=== PATIENT | female | born 1940 | race Caucasian/White ===

== ENCOUNTER 2017-10-19 06:29 | Inpatient (IN) | payer MEDICARE, MEDICAID ==
[2017-10-08 10:01] LABS: ABSOLUTE BASOPHILS 0.1 thou/uL (0.0-0.2); ABSOLUTE EOSINOPHILS 0.2 thou/uL (0.0-0.7); ABSOLUTE LYMPHOCYTES 1.2 thou/uL (0.8-5.3); ABSOLUTE MONOCYTES 0.4 thou/uL (0.0-1.2); ABSOLUTE NEUTROPHILS 6.2 thou/uL (1.6-8.1); BASOPHILS 0.8 %; HEMATOCRIT 43.4 % (37.0-47.0); HEMOGLOBIN 14.2 gm/dL (12.0-15.0); LYMPHOCYTES 15.2 %; MCH 29.5 pg (26.0-34.0); MCHC 32.8 g/dL (28.0-37.0); MONOCYTES 5.4 %; MPV 9.4 fl. (7.2-11.1); NUCLEATED RBCS 0 /100WBC; PLATELET COUNT* 187 thou/uL (150-400); POLYS 76.6 %; RBC 4.82 mil/uL (4.20-5.00); RDW-CV 15.4 % (10.5-14.5); WBC 8.1 thou/uL (4.0-11.0)
[2017-10-08 10:13] LABS: APTT 37.1 Seconds (25.0-31.3); INR 3.8
[2017-10-08 10:20] LABS: ALBUMIN 3.5 g/dL (3.4-5.0); CALCIUM 9.1 mg/dL (8.5-10.1); CREATININE 1.2 mg/dL (0.6-1.3); POTASSIUM 4.2 mmol/L (3.5-5.1); TOTAL BILIRUBIN 1.1 mg/dL (<0.1-1.0)
--- NOTE | 2017-10-08 14:46 | EKG ---
[place] [address] ELECTROCARDIOGRAM REPORT Name: ISABEL NORMAN Room: PRE IN R.#: [id number] Admission: Attend Phys: Radha Gamboa Discharge: Date of : 42 Report #: [id number] THIS REPORT FOR: //name// [facility] Test Date: 2017-10-08 Test Time: 08:48:45 Pat Name: ISABEL NORMAN Department: Room: Gender: F Particle Board Supervisor: : 1940 Requested By: Ivan Black Order Number: [id number] Reading MD: Russ Carreno Measurements Intervals [place] Rate: 60 P: WA: QRS: 96 QRSD: 115 T: 217 QT: 483 QTc: 483 Interpretive Statements Atrial fibrillation Nonspecific intraventricular conduction delay Repol abnrm suggests ischemia, anterolateral Compared to ECG 01/03/2015 11:31:06 rate slowed Electronically Signed On 10-08-2017 14:46:26 BIOMETRICS ANALYST by Russ Carreno [email or web address] <ELECTRONICALLY SIGNED> By: Russ Carreno MD, [facility] 10/08/17 1446 0848 0848 Russ Carreno MD, FACC /EPI
[~2017-10-19] VITALS: Ht 172.7 cm; Wt 108.9 kg
[~2017-10-19 06:29] MED LIST: ADULT LOW DOSE81 MG PO; ALBUTEROL2.5 MG/0.5 INH; ALLOPURINOL 30300 M1 PO; AMBIEN 10 MG TA10 MG PO; AMBIEN 5 MG TABL5 M1 PO; ASA81BEC PO; ASPIRIN EC81 M1 PO; AUGMENTIN 875875 MG PO; AZITHROMYCIN 2250 MG; AZITHROMYCIN 2250 MG PO; BENADRYL ALLERG25 MG PO; BENADRYL25 MG PO; CARAFATE1 GM/10 ML PO; CEFTIN500 MG; CHLORHEXIDINE; COUMADIN 5 MG TA5 M1 PO; COUMADIN PO; COUMADIN7.5 MG PO; DIAZEPAM 5 MG5 M1 PO; DOXYCYCLINE 10100 M2 PO; ERAPID NEBULIZ1 EACH MC; JANTOVEN5 MG PO; LASIX 40 MG TAB40 M1 PO; LEVOTHROID75 MCG PO; LIPITOR80 MG PO; LOPRESSOR 12.12.5 MG PO; LOPRESSOR 50 MG50 M1 PO; LOPRESSOR25 PO; LOPRESSOR50 PO; LORTAB 5 MG/5001 TA1 PO; LOVENOX; LOVENOX SC; MECLIZINE 25 MG25 M1 PO; MULTIVITAMINS1 EAC7; NITROFURANTOIN100 MG PO; NORCO 5-325 TA1 EACH; PACERONE 200 M200 MG NG; PERCOCET 2.5-31 EACH PO; PERCOCET PO; PHENERGAN 25 MG25 M1 PO; PILOCARPINE HCL5 M1 PO; POTASSIUM CHLORIDE; PREDNISONE 20 M20 M1 PO; PRILOSEC40 MG PO; PROMETHAZINE/C118 ML; RENA-VITE TABL0.8 MG PO; RENAL MULTIVIT1 EACH PO; SIMVASTATIN40 MG PO; SYNTHROID75 MCG PO; SYNTHROID88 MCG PO; TIMOLOL GL0.5 %/5 M1 OP; TRAVATAN Z2.5 ML OPHTHALMIC; VENTOLIN HFA 1818 GM INH; VOL-CARE RX TA1 EACH PO; ZETIA10 MG PO
[2017-10-19 07:00] VITALS: BP 146/85
[2017-10-19 07:31] LABS: INR 1.4; PROTIME 13.3 Seconds (9.20-11.50)
[2017-10-19 14:20] VITALS: BP 133/62
--- NOTE | 2017-10-19 15:15 | OP ---
[facility] [place] [address] OPERATIVE REPORT Name: ISABEL NORMAN Room: [address] IN M.R.#: [id number] Admission: 10/19/17 Attend Phys: Radha Gamboa Discharge: Date of : 42 Report #: [id number] THIS REPORT FOR: //name// CC: Scarlet Garg DATE OF SERVICE: 10/19/2017 PREOPERATIVE DIAGNOSIS: Advanced degenerative joint disease, left knee. POSTOPERATIVE DIAGNOSIS: Advanced degenerative joint disease, left knee. PROCEDURE PERFORMED: Left total knee arthroplasty. SURGEON: Ivan Black DO. LACE PAPER MACHINE OPERATOR: Eligio Faust DO. SECOND ASSIST: , DO. ANESTHESIA: General with local capsular block. ESTIMATED BLOOD LOSS: 250 mL. SPECIMENS: None. COMPLICATIONS: None. CONDITION: Stable. DRAINS: None. TOURNIQUET: Not used. ANTIBIOTICS: 1 gram vancomycin preoperatively, 1 gram vancomycin intraoperatively. IMPLANTS: Biomet Vanguard posterior stabilized size 60 femur, 71 mm tibial baseplate, 31 mm asymmetric patella and a 14 mm posterior stabilized polyethylene liner. INDICATIONS: The patient is a 76-year-old female who has been seen multiple times in the clinic regarding her left knee pain. Unfortunately, she is no longer responding to conservative treatments including anti-inflammatories, weight loss, activity modification, corticosteroid injections. She presents [facility] [place] [address] OPERATIVE REPORT Name: ISABEL NORMAN Room: [address] IN [facility].#: [id number] Admission: 10/19/17 Attend Phys: Radha Gamboa Discharge: Date of : 42 Report #: [id number] today for the above-mentioned procedure. Risks, benefits, complications and alternatives of surgery have been thoroughly reviewed and discussed with her and she is wishing to proceed. DESCRIPTION OF PROCEDURE: The patient taken to the OR suite, placed supine on the OR table. She was given the benefit of general anesthetic. A well-padded tourniquet was placed on the left upper thigh. This was not inflated during the case. Prior to procedure, a timeout was taken confirming correct site, patient and procedure. Procedure began with a midline incision over the left knee. Dissection carried down to the joint capsule. A second knife was used to perform a medial parapatellar capsulotomy. Medial periosteal sleeve was developed and excess fat pad and synovium were removed. The patella was everted and leg was brought into flexion. The opening drill was used to access femoral canal. IM guide sid was inserted and a distal femoral cutting block was pinned in place. This was set to take 11 mm cut off the distal femur. These cuts were performed and proceeded to the tibia. Extramedullary guide sid was used to align our tibial cutting block. This was measured at 10 mm off the high side and the block was then shifted up 2 mm superiorly and locked in place. Our proximal tibia cut was performed at this time. Please note retractors were placed to protect all vital structures during all of her bone cuts. The leg was brought into extension and a 10 mm spacer block was placed. This allowed full extension. We then proceeded to size our distal femur. This was measured a size 60. A 4-in-1 cutting block pinned in place and these cuts were made. Remaining ACL and PCL were removed as well as the excess menisci. Tibial tray was then pinned in place utilizing a drop sid to check her alignment. This was measured in line with the medial third tibial tubercle and mid talus. A trial tibia pinned in place followed by femur and a 10 mm spacer was placed. We then proceeded to resurface the patella. There was a significant amount of wear on the patella as well. This was done using the Shanice reamer system. A trial button was placed. Knee was taken through range of motion. Patella was tracking well. The 10 mm block was lying in full extension and flexion; however, there was a bit of laxity; therefore, we upsized to a size 14. All trial implants were removed. The proximal tibia was prepared. Pulsavac was used to clean bone surfaces while cement was mixed on the back table. Final implants were placed to begin with tibial tray and followed by the femur and the patella. All excess cement was removed. A 40 mm spacer block was used for compression. The final poly was inserted with the locking bar. The knee was held in a single position while cement was allowed to cure. Posterior capsular block was performed. The knee was thoroughly irrigated. Vancomycin powder was placed in the wound as well as a topical TXA. The capsule was closed with a #1 Vicryl followed by a running Quill, 2-0 Monocryl subcutaneously and a running 3-0 V-Loc with Dermabond glue for skin. Sterile [place] [address] OPERATIVE REPORT Name: ISABEL NORMAN: 106- ADM IN M.R.#: [id number] Admission: 10/19/17 Attend Phys: Radha Gamboa Discharge: Date of : 42 Report #: [id number] patient tolerated the procedure well and was transferred to PACU in good and stable condition. All sponge, needle counts were correct x 2. <ELECTRONICALLY SIGNED> By: Ivan Black DO 10/19/17 1515 1250 1331Rdagoberto Black DO /nt
[2017-10-20 00:41] VITALS: BP 125/64
[2017-10-20 04:30] VITALS: BP 112/55
[2017-10-20 04:49] LABS: HEMATOCRIT 35.9 % (37.0-47.0)
[2017-10-20 08:30] VITALS: BP 104/51
[2017-10-20 16:33] VITALS: BP 117/50
[2017-10-21 00:17] VITALS: BP 116/64
[2017-10-21 04:26] VITALS: BP 130/61
[2017-10-21 04:37] LABS: INR 1.4; PROTIME 13.6 Seconds (9.20-11.50)
[2017-10-21 04:43] LABS: HEMOGLOBIN 11.1 gm/dL (12.0-15.0)
[2017-10-21 08:05] VITALS: BP 123/54
--- NOTE | 2017-10-21 10:33 | S ---
[address] [address] SURGICAL PATH RPT PROCEDURE Name: VIANEY NORMAN Room: [address] IN M.R.#: [id number] Admission: 10/19/17 Date of : 42 Discharge: Report #: [id number] Path Case #: [id number] PATHOLOGY REPORT COLLECTION DATE: 10/19/2017 RECEIVED DATE: 10/19/2017 SUBMITTING PHYS: Dr. Ivan Black OTHER PHYS: Dr. Scarlet Garg SPECIMEN(S) RECEIVED: A.Left knee bone and tissue * * * * * * * * * * * * FINAL DIAGNOSIS: Left knee bone and tissue, total knee replacement: - Benign meniscus and synovium and benign bone and cartilage with severe degenerative changes. (FIDEL:pit; 10/21/2017) PATHOLOGIST: Austyn Ureña M.D. REPORT ELECTRONICALLY SIGNED BY: Austyn Ureña M.D. DATE/TIME: 10/21/2017 10:33 * * * * * * * * * * * * GROSS PATHOLOGY: Received in formalin labeled "Vianey Norman left knee bone and tissue," are multiple segments of bone, including tibial plateau, measuring 13.1 x 12.6 x 2.4 cm in aggregate dimensions admixed with soft tissue; meniscus is present. The specimen shows focal eburnation of the articular surfaces. Mac Developer sections of bone and soft tissue are submitted in cassette A1, following decalcification. (DAC; 10/20/2017) CLINICAL HISTORY: Left knee degenerative joint disease INITIAL CPT CODE(S): A; 83406, 16644 Professional services performed by [facility] at [facility] [address] [place] [address] Technical services performed by [facility] at [address] [place] [address], [facility] [address] [address]. [address] [address] SURGICAL PATH RPT PROCEDURE Name: VIANEY NORMAN Room: [address] IN [facility].#: [id number] Admission: 10/19/17 Date of : 41 Discharge: Report #: [id number] Path Case #: [id number] [facility] [address] [address] PHONE: [phone] DIRECTOR: Werner Lloyd M.D. * * * END OF REPORT * * *
[2017-10-21 13:19] VITALS: BP 123/54
[2017-10-21] MEDS ORDERED: PRILOSEC 10MG C10 MG PO (13:42)
[2017-10-21] MEDS ORDERED: AMBIEN 5 MG TABL5 M1 PO (13:45)
[2017-10-21] MEDS ORDERED: COUMADIN 5 MG TA5 M1 PO (13:46)
[2017-10-21] MEDS ORDERED: OXYCONTIN10 M1 PO (13:48)
[2017-10-21] MEDS ORDERED: CENTRUM SILVER1 EAC2 PO (13:50)
[2017-10-21] MEDS ORDERED: LIPITOR80 MG PO (13:53)
[2017-10-21] MEDS ORDERED: LOPRESSOR50 PO (13:54)
[2017-10-21] MEDS ORDERED: ENOXAPARIN40 MG/0.1 SUBQ (13:56)
[2017-10-21 18:50] VITALS: BP 145/78
[2017-10-21 20:05] VITALS: BP 138/51
[2017-10-22 00:03] VITALS: BP 137/66
[2017-10-22 04:00] VITALS: BP 117/50
[2017-10-22 04:07] LABS: INR 1.4; PROTIME 13.6 Seconds (9.20-11.50)
[2017-10-22 07:32] VITALS: BP 147/64
[2017-10-22 09:02] VITALS: BP 123/54
== END 2017-10-22 14:30 | DRG 470 ==
LOC: M.PRE 06:29 → M.ORTHSURG 07:01 → M.TBA 07:01 → M.PRE 12:32 → M.ORTHSURG 13:44
PROVIDERS: Internal Medicine; Orthopaedic Surgery; ADMIT Internal Medicine
PROC: 0SRD0J9 Replacement of Left Knee Joint with Synthetic Substitute, Cemented, Open Approach (ICD-10-PCS; principal; 2017-10-19)
PROC: 3E0T3BZ Introduction of Anesthetic Agent into Peripheral Nerves and Plexi, Percutaneous Approach (ICD-10-PCS; 2017-10-19)
DX: M17.12 Unilateral primary osteoarthritis, left knee (principal); J98.11 Atelectasis; I48.91 Unspecified atrial fibrillation; I10 Essential (primary) hypertension; M10.9 Gout, unspecified; H54.62 Unqualified visual loss, left eye, normal vision right eye; E66.01 Morbid (severe) obesity due to excess calories; Z90.49 Acquired absence of other specified parts of digestive tract; Z87.891 Personal history of nicotine dependence; Z95.2 Presence of prosthetic heart valve; Z88.5 Allergy status to narcotic agent; Z88.0 Allergy status to penicillin; Z91.040 Latex allergy status; Z88.8 Allergy status to other drugs, medicaments and biological substances; Z79.899 Other long term (current) drug therapy; Z68.36 Body mass index [BMI] 36.0-36.9, adult; Z79.01 Long term (current) use of anticoagulants

== ENCOUNTER → 2017-11-02 | Outpatient (CLI) | payer MEDICARE, MEDICAID ==
[~2017-11-02] MED LIST changes: +CENTRUM SILVER1 EAC2 PO; +ENOXAPARIN40 MG/0.1 SUBQ; +OXYCONTIN10 M1 PO; +PRILOSEC 10MG C10 MG PO
== END ==
LOC: M.WC 11-01 08:00
DX: T81.31XD Disruption of external operation (surgical) wound, not elsewhere classified, subsequent encounter (principal); I87.2 Venous insufficiency (chronic) (peripheral); I89.0 Lymphedema, not elsewhere classified; I48.91 Unspecified atrial fibrillation; E03.9 Hypothyroidism, unspecified; E78.5 Hyperlipidemia, unspecified; E66.01 Morbid (severe) obesity due to excess calories; J44.9 Chronic obstructive pulmonary disease, unspecified; Z87.891 Personal history of nicotine dependence; Z86.73 Personal history of transient ischemic attack (TIA), and cerebral infarction without residual deficits; Z68.38 Body mass index [BMI] 38.0-38.9, adult; Y83.8 Other surgical procedures as the cause of abnormal reaction of the patient, or of later complication, without mention of misadventure at the time of the procedure

== ENCOUNTER → 2017-12-08 | Outpatient (CLI) | payer MEDICARE, MEDICAID ==
--- NOTE | 2017-12-10 11:06 | PF ---
[address] [address] PULMONARY FUNCTION REPORT Name: ISABEL NORMAN Room: [facility] Marialuisa#: [id number] Admission: 12/08/17 Attend Phys: Scarlet Louis DO Discharge: Date of : 42 Report #: [id number] THIS REPORT FOR: //name// CC: Scarlet Freed REFERRING PHYSICIAN: Dr. Dexter Freed/Dr. Scarlet Louis. Spirometry: FEV1/FVC ratio was 60%. The FEV1 was 1.23 liters at 52% predicted. The FVC was 1.97 liter, 62% of predicted. No positive bronchodilator response. Total lung capacity was 87% predicted at 4.74 liters. The residual volume was 94% predicted. DLCO was low at 38% predicted. IMPRESSION: The above pulmonary function test demonstrates moderately severe obstructive pulmonary defect with low DLCO. <ELECTRONICALLY SIGNED> By: Tristan Mitchell MD 12/10/17 1106 1110 1251Dsantos Hernandez MD /nt
== END ==
LOC: M.PUL 09:34
DX: I51.7 Cardiomegaly (principal); J98.8 Other specified respiratory disorders; R09.02 Hypoxemia; Z88.0 Allergy status to penicillin

== ENCOUNTER → 2017-12-31 | Outpatient (CLI) | payer MEDICARE, MEDICAID | LOC: M.RAD 12:31 | DX: Z12.31 Encounter for screening mammogram for malignant neoplasm of breast (principal); N63.0 Unspecified lump in unspecified breast ==

== ENCOUNTER → 2018-01-08 | Outpatient (CLI) | payer MEDICARE, MEDICAID ==
[2018-01-08 09:48] LABS: INR 2.2; PROTIME 21.4 Seconds (9.20-11.50)
== END ==
LOC: M.ULTRA 01-05 08:30
PROVIDERS: Radiology Radiation Oncology
DX: R92.8 Other abnormal and inconclusive findings on diagnostic imaging of breast (principal); R79.1 Abnormal coagulation profile

== ENCOUNTER → 2018-02-03 | Outpatient (CLI) | payer MEDICARE, MEDICAID ==
[2018-02-03 15:36] LABS: CALCIUM 9.1 mg/dL (8.5-10.1); CREATININE 1.3 mg/dL (0.6-1.3); MAGNESIUM 2.1 mg/dL (1.8-2.4); POTASSIUM 4.5 mmol/L (3.5-5.1)
== END ==
LOC: M.LAB 14:40
PROVIDERS: Nurse Practitioner
DX: I50.32 Chronic diastolic (congestive) heart failure (principal); N18.3 Chronic kidney disease, stage 3 (moderate); J44.9 Chronic obstructive pulmonary disease, unspecified; I89.0 Lymphedema, not elsewhere classified

== ENCOUNTER → 2018-03-03 | Outpatient (CLI) | payer MEDICARE, MEDICAID ==
--- NOTE | 2018-03-14 12:04 | ONC ---
[place] [address] RADIATION ONCOLOGY NOTE Name: ISABEL NORMAN [id number] Admission: 03/03/18 Attend Phys: Ford Francisco MD Discharge: Date of : 41 Report #: [id number] THIS REPORT FOR: //name// CC: Dr. Scarlet Black (Orthopedic Surgeon) Dr. Dickson Angel DATE OF SERVICE: 03/03/2018 REFERRING PHYSICIANS: Include Dr. Dexter Freed, Dr. Ivan Gordon, Dr. Black from Orthopedics and Dr. Scarlet Louis and Dickson Angel, DO. [facility] phone is [phone]. 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 Radiation treatments were completed on 07/30/2010. INTERVAL NOTE: The patient has xerostomia, and she avoids dry foods. She likes to eat moist foods. She is edentulous. Usually, she will eat soft foods. She said she had some weight loss, but she said that has less to do with her intake of food than the Lasix that she is taking. MEDICATIONS: Include metoprolol. Coumadin, which she takes because she has an artificial heart valve. Benadryl as needed. Lipitor, allopurinol, Ambien, Lasix, omeprazole, oxycodone as needed. She is on 88 mcg of levothyroxine. SOCIAL HISTORY: The patient is and retired. She was a former smoker, and she quit smoking around 2005, and she smoked about a pack a day for about 50 years. REVIEW OF SYSTEMS: RESPIRATORY: The patient's breathing was stable. She does not have any shortness of breath. GASTROINTESTINAL: The patient feels like she is eating well. She feels like her weight loss is mostly due to adjustments in her Lasix. PHYSICAL EXAMINATION: VITAL SIGNS: The patient weighed 250.6 pounds on 03/03/2018, 266.2 pounds on 02/20/2017 and 258.2 pounds on 08/25/2016. On 03/03/2018, blood pressure was 138/77, pulse 78, oxygen saturation 100%, respirations 20. LYMPH NODES: The patient had no palpable cervical or supraclavicular [place] [address] RADIATION ONCOLOGY NOTE Name: ISABEL NORMAN Room: [facility]#: [id number] Admission: 03/03/18 Attend Phys: Ford Francisco MD Discharge: Date of : 42 Report #: [id number] HEART: She has known atrial fibrillation with an irregular rate and rhythm. HEAD, EYES, EARS, NOSE AND THROAT: Mouth had no suspicious visible lesions. There were no suspicious visible lesions in the tonsillar area. There were no palpable suspicious lesions in the mouth or the tonsil area. LUNGS: were clear to auscultation. LABORATORY DATA: BUN 28, creatinine 1.25. White blood count 6.6, hemoglobin 12.6, TSH was 2.91, which was within normal limits, on her present dose of levothyroxine, which was at 88 mcg per day. RADIOLOGIC DATA: The patient had a biopsy of the right breast because of some skin thickening on her mammogram and that was benign, so radiologically from 01/08/2018, she had a diagnostic mammogram, which showed some thickening of left breast, which ended up being benign skin thickening. She also had a screening low dose chest CT on 12/28/2017, which showed a stable small left lower lobe nodule, and development of scattered new tiny pulmonary nodules measuring up to 0.3 cm, which were nonspecific, but thought to be granulomas or scarring. A followup chest low dose CT was recommended in 12 months. She has coronary artery calcifications and follows up with her conditioner tumbler. ASSESSMENT/PLAN: 1. Lung cancer screening- The patient will have a low dose chest CT without contrast ordered in 12/2018. She will be asked to schedule a follow up appointment to see me afterwards. 2. Abdominal aortic aneurysm- The patient follows up with her vascular surgeon, Dr. Gordon, and she says she is going to have an ultrasound in the next week with Dr. Gordon. 3. Dentition- The patient is edentulous. 4. History of head and neck cancer- There is no evidence of head and neck cancer at this time. A requisition was written for a complete blood count, comprehensive metabolic panel, TSH in 02/2019, and the patient was asked to schedule a followup appointment to see me afterwards. 5. Hypothyroidism- The patient was given a refill for 88 mcg of levothyroxine and a TSH was ordered in 02/2019. She was asked to schedule a followup appointment [place] [address] RADIATION ONCOLOGY NOTE Name: ISABEL NORMAN Room: [facility]#: [id number] Admission: 03/03/18 Attend Phys: Ford Francisco MD Discharge: Date of : 42 Report #: [id number] Thank you for allowing me to participate in the care of this patient. <ELECTRONICALLY SIGNED> By: Ford Francisco MD 03/14/18 1204 1014 1724Dgail Francisco MD /nt
== END ==
LOC: M.RTH 01-27 09:30
DX: Z08 Encounter for follow-up examination after completed treatment for malignant neoplasm (principal); E03.9 Hypothyroidism, unspecified; I71.4 Abdominal aortic aneurysm, without rupture; Z85.850 Personal history of malignant neoplasm of thyroid; Z85.9 Personal history of malignant neoplasm, unspecified

== ENCOUNTER → 2019-01-05 | Outpatient (CLI) | payer MEDICARE, MEDICAID ==
[~2019-01-05] MED LIST changes: +KLOR-CON 1010 MEQ PO; +LASIX 40 MG TAB40 M2 PO; +MEDI-LYTE TABL1 EACH PO; +OXYCODONE HCL 55 MG PO; -OXYCONTIN10 M1 PO; +SPIRONOLACTONE25 MG PO; +SYNTHROID100 MC1 PO; -TIMOLOL GL0.5 %/5 M1 OP; +TIMOLOL GL0.5 %/5 M1 OPHTHALMIC
--- NOTE | 2019-01-06 17:27 | 2DMMODE ---
[place] [address] 2 D/M-MODE ECHOCARDIOGRAM Name: ISABEL NORMAN Room: [facility]#: [id number] Admission: 01/05/19 Attend Phys: Hayden Canseco Discharge: Date of : 42 Date of Service: 01/06/19 1727 Report #: [id number] THIS REPORT FOR: //name// ADDENDUM APPROVED REPORT Study performed: 01/05/2019 08:45:03 EXAM: Comprehensive 2D, Doppler, and color-flow Echocardiogram Patient Location: Out-Patient BSA: 2.27 HR: 64 bpm BP: 138/66 mmHg Other Information Study Quality: Fair Indications Congestive Heart Failure Atrial Fibrillation Aortic Valve replacement Echo Enhancing Agent Indication: Rule out Shunt Agent(s) / Amount(s) Used: Agitated Saline 10 cc 2D Dimensions IVSd: 13.04 (7-11mm) LVOT Diam: 20.94 (18-24mm) LVDd: 48.97 mm PWd: 8.82 (7-11mm) Ascending Ao: 29.12 (22-36mm) LVDs: 29.47 (25-40mm) Aortic Root: 26.12 mm Volumes Left Atrial Volume (Systole) LA ESV Index: 27.40 mL/m2 Aortic Valve AoV Peak Gerry.: 1.96 m/s AO Peak Gr.: 15.39 mmHg LVOT Max P.45 mmHg AO Mean Gr.: 8.74 mmHg LVOT Mean P.77 mmHg LVOT Max V: 0.60 m/s AO V2 VTI: 49.90 cm LVOT Mean V: 0.41 m/s SAI (VTI): 1.04 cm2 LVOT V1 VTI: 15.11 [place] [address] 2 D/M-MODE ECHOCARDIOGRAM Name: ISABEL NORMAN [facility] [id number] Admission: 01/05/19 Attend Phys: Hayden Canseco Discharge: Date of : 42 Date of Service: 01/06/19 1727 Report #: [id number] Mitral Valve MV Decel. Time: 166.93 ms MV PHT: 48.41 ms MVA (PHT): 4.54 cm2 TDI Medial E' Gerry.: 0.07 m/s Lateral E' Gerry.: 0.10 m/s Pulmonary Valve PV Peak Gerry.: 0.82 m/s PV Peak Gr.: 2.70 mmHg Tricuspid Valve RAP Estimate: 5.00 mmHg TR Peak Gr.: 14.98 mmHg RVSP: 19.98 mmHg PA Pressure: 19.98 mmHg Left Ventricle The left ventricle is normal size. There is global hypokinesis of the left ventricle. There is normal left ventricular wall thickness. Left ventricular systolic function is mildly decreased. LVEF is 45-50%. The left ventricular diastolic function is normal. Right Ventricle The right ventricle is normal size. Right ventricle is mildly hypokinetic. Atria Left atrium is mildly dilated. Interatrial septum is intact without evidence of ASD or PFO. Right atrium is mildly dilated. Aortic Valve Mechanical aortic valve is present. No aortic regurgitation is present. There is no aortic valvular stenosis. Mitral Valve Mild mitral annular calcification. The mitral valve is mildly thickened. Mild mitral regurgitation. No evidence of mitral valve stenosis. Tricuspid Valve The tricuspid valve is normal in structure. Mild tricuspid regurgitation. Pulmonic Valve The pulmonary valve is normal in structure[place] [address] 2 D/M-MODE ECHOCARDIOGRAM Name: ISABEL NORMAN Room: [facility]#: [id number] Admission: 01/05/19 Attend Phys: Hayden Canseco Discharge: Date of : 42 Date of Service: 01/06/19 1727 Report #: [id number] regurgitation. Great Vessels The aortic root is normal in size. IVC is normal in size and collapses >50% with inspiration. Pericardium There is no pericardial effusion. <Conclusion> LVEF is 45-50%. Left atrium is mildly dilated. Mechanical aortic valve is present. Mild mitral regurgitation. Interatrial septum is intact without evidence of ASD or PFO. <ELECTRONICALLY SIGNED> By: Saravanan Orellana MD, [facility] 01/06/191726 26 26 Saravanan Orellana MD, FAC /INF
== END ==
LOC: M.CRD 08:41
DX: I08.8 Other rheumatic multiple valve diseases (principal); I11.0 Hypertensive heart disease with heart failure; I50.32 Chronic diastolic (congestive) heart failure; I48.2 Chronic atrial fibrillation; Z95.2 Presence of prosthetic heart valve; Z88.8 Allergy status to other drugs, medicaments and biological substances; Z91.040 Latex allergy status; Z88.5 Allergy status to narcotic agent; Z88.0 Allergy status to penicillin

== ENCOUNTER 2019-01-06 11:00 | Inpatient (IN) | payer MEDICARE, MEDICAID ==
[~2019-01-06] VITALS: Ht 170.2 cm; Wt 113.9 kg
--- NOTE | ~2019-01-06 | CON ---
[address] [address] CONSULTATION Name: ISABEL NORMAN Room: [address] IN [place].#: [id number] Admission: 01/06/19 Attend Phys: Clifford Lara MD Discharge: Date of : 42 Report #: [id number] THIS REPORT FOR: //name// CC: Scarlet Lara DATE OF SERVICE: 01/07/2019 NEUROLOGY CONSULTATION HISTORY OF PRESENT ILLNESS: The patient is a 78-year-old female who presents with paresthesias of the left hand. She also noticed some weakness when she tried to grasp something. She was concerned that she might be having a stroke, so she came to the Emergency Room. In the Emergency Room, the patient had a CT scan of the head, this was unremarkable. The patient herself states that she had no other symptoms in her face or her legs other than in the left hand where she had some numbness and weakness. Today, she has returned to normal. PAST MEDICAL HISTORY: Vascular disease, severe retinal tear in the left eye, chronic bronchitis, heart murmur, atrial fibrillation with cardioversion, hypertension, gout, nocturnal hypoxia, chronic kidney disease, chronic congestive heart failure, pulmonary hypertension, chronic obstructive pulmonary disease, diabetes mellitus, hypothyroidism, hyperlipidemia. PAST SURGICAL HISTORY: Removal of the left eye after the torn retina could not be repaired, mechanical aortic valve replacement, tonsillectomy secondary to tonsillar cancer, cholecystectomy, right carotid endarterectomy. MEDICATIONS: Aldactone 25 mg daily, aspirin 81 mg daily, atorvastatin 80 mg daily, Zetia 10 mg at bedtime, Lasix 40 mg b.i.d., Xalatan eye drops daily, levothyroxine 100 mcg daily, metoprolol 50 mg b.i.d., pantoprazole 40 mg daily, allopurinol 150 mg at bedtime. ALLERGIES: PROCAINE, PENICILLIN, CODEINE AND LATEX. PHYSICAL EXAMINATION: VITAL SIGNS: Temperature 36.3, pulse rate 59, respiratory rate 18, blood pressure 117/73, bedside pulse oximetry 97% on 2 liters. NEUROLOGIC: Cranial nerves 2-12 are grossly intact. Motor exam demonstrates symmetrical strength in all 4 extremities. The patient has marked atrophy of the left abductor pollicis brevis. Coordination reveals intact [id number]. Gait was not tested. LABORATORY DATA: Hematology: White blood cell count 5.7, hemoglobin 12.5, hematocrit 37.1, MCV 86.3, platelet count 146,000. INR 7.1. Chemistry: Sodium 143, potassium 4, chloride 107, carbon dioxide 28, BUN 28, creatinine 1.3, [place] [address] CONSULTATION Name: ISABEL NORMAN Room: [address] IN M.R.#: [id number] Admission: 01/06/19 Attend Phys: Clifford Lara MD Discharge: Date of : 42 Report #: [id number], glucose 93, hemoglobin A1c 6.1, calcium 8.7. Liver functions normal. Triglycerides 61, cholesterol 133, LDL cholesterol 74, HDL cholesterol 47. IMAGING: CT scan of the head demonstrates moderate cerebral atrophy. Carotid ultrasound consistent with right carotid stenting. IMPRESSION: This patient most likely has a left carpal tunnel syndrome. My office will call her on Thursday to schedule an EMG. The patient also has limited range of motion of the right shoulder. She sees Dr. Black and I suggested that she speak to him to see what can be done about her shoulder. I thank you for your kind referral of this patient. By: 1447 0420Precious Jackman DO /nt
[2019-01-06 11:01] VITALS: BP 138/55
--- NOTE | 2019-01-06 11:23 | NUR ---
PT'S SON CONTACTED FOR UPDATE ON PT, PER PATIENT REQUEST
[2019-01-06 11:33] LABS: ABSOLUTE EOSINOPHILS 0.1 thou/uL (0.0-0.7); ABSOLUTE LYMPHOCYTES 1.3 thou/uL (0.8-5.3); ABSOLUTE MONOCYTES 0.4 thou/uL (0.0-1.2); ABSOLUTE NEUTROPHILS 4.6 thou/uL (1.6-8.1); BASOPHILS 0.8 %; EOSINOPHILS 0.9 %; HEMATOCRIT 43.1 % (37.0-47.0); HEMOGLOBIN 14.3 gm/dL (12.0-15.0); LYMPHOCYTES 20.8 %; MCH 28.8 pg (26.0-34.0); MCHC 33.2 g/dL (28.0-37.0); MCV 86.7 fL (80.0-100.0); MPV 9.2 fl. (7.2-11.1); NUCLEATED RBCS 0 /100WBC; PLATELET COUNT* 165 thou/uL (150-400); POLYS 71.5 %; RBC 4.97 mil/uL (4.20-5.00); RDW-CV 17.2 % (10.5-14.5); WBC 6.4 thou/uL (4.0-11.0)
[2019-01-06 11:50] LABS: ALBUMIN 3.3 g/dL (3.4-5.0); ALKALINE PHOSPHATASE 113 U/L (46-116); ANION GAP 6 mmol/L (7-16); BUN 30 mg/dL (7-18); CALCIUM 8.9 mg/dL (8.5-10.1); CHLORIDE 104 mmol/L (98-107); CO2 30 mmol/L (21-32); CREATININE 1.5 mg/dL (0.6-1.3); GLUCOSE 102 mg/dL (70-99); POTASSIUM 4.1 mmol/L (3.5-5.1); SGOT 33 U/L (15-37); SGPT 30 U/L (30-65); SODIUM 140 mmol/L (136-145); TOTAL BILIRUBIN 0.8 mg/dL (<0.1-1.0); TOTAL PROTEIN 7.2 g/dL (6.4-8.2); TROPONIN-I LEVEL <0.06 ng/mL (<0.06)
[2019-01-06 12:03] LABS: APTT 46.9 Seconds (25.0-31.3); PROTIME 71.4 Seconds (9.20-11.50)
[2019-01-06 12:10] LABS: INR 7.1
--- NOTE | 2019-01-06 12:26 | NUR ---
STEFFI NOTIFIED UPON PT RETURN FROM CT. PT CONNECTED TO MONITOR AND O2
[2019-01-06 13:15] VITALS: BP 156/102
[2019-01-06 14:11] VITALS: BP 155/84
--- NOTE | 2019-01-06 14:16 | NUR ---
RECEIVED REPORT FROM ER AND ASSUMED CARE PF PT AT 1320.PT IS AN NEW ADMISSION FROM ER FOR WEAKNESS.PT IS A/OX4.TRACING AFIB ON THE MONITOR.HAS HX OF AFIB.ON RA.NIH SCALE OF 3 NO ANY ACUTE CHANGES.ADMISSION PROCEDURE COMPLETED,ALL PAPER SIGNED.VSS.NO SKIN ISSUES AND EDEMA.RT LIMB ALERT FOR HX FISTULA.LATEX ALLERY.PASSED SWALLO TEST DOWN IN THE ER.CAROTID DOPPLER COMPLETED.UP STAND BY.CALL LIGHT AND FALL PRECAUTIONS IN PLACE.WILL CONYINUE TO MONITOR
--- NOTE | 2019-01-06 14:18 | EKG ---
[place] [address] ELECTROCARDIOGRAM REPORT Name: ISABEL NORMAN Room: [address] ADM IN .R.#: [id number] Admission: 01/06/19 Attend Phys: Clifford Lara MD Discharge: Date of : 42 Report #: [id number] THIS REPORT FOR: //name// [facility] ED Test Date: 2019-01-06 Test Time: 11:07:47 Pat Name: ISABEL NORMAN Department: Room: [facility] Gender: F Hand Rounder: Aleja OGLESBY : 1940 Requested By: Bin Mo Order Number: [id number] MD: Saravanan Orellana Measurements Intervals [place] Rate: 73 P: [place]: QRS: 96 QRSD: 118 T: 235 QT: 449 QTc: 495 Interpretive Statements Atrial fibrillation Borderline repolarization abnormality Compared to ECG 11/30/2018 18:04:21 No significant changes noted Electronically Signed On 01-06-2019 14:17:53 CDT by Saravanan Orellana [email or web address] <ELECTRONICALLY SIGNED> By: Saravanan Orellana MD, [facility] 01/06/19 1417 06 06 Saravanan Orellana MD, FAC /EPI
[2019-01-06 15:44] VITALS: BP 126/50
--- NOTE | 2019-01-06 18:06 | NUR ---
VSS.TRACING AFIB WITH RATE CONTROLLED ON THE MONITOR.IV PATENT AND SALINE LOCKED.ON RA.CAROTID DOPPLER COMPLETED.NIH SCALE ASSESSED WITH NO SIGNIFICANT FINDINGS.SALLOW EVALUATION COMPLECTED.PT HAS LEFT PROSTHETIC EYE AND MECHANICAL VALVE PRESENT.IS ALLERGIC TO LATEX.HRLY ROUNDING COMPLETED.CALL LIGHT AND FALL PRECAUTIONS IN PLACE.WILL CONTINUE TO MONITOR.
--- NOTE | 2019-01-06 18:13 | NUR ---
I have reviewed the documentation by ino taylor from 1319 to 1814 and I concur with it.
[2019-01-06 20:00] VITALS: BP 122/46
[2019-01-06 23:06] LABS: GLYCOHEMOGLOBIN (HGB A1C) 6.1 % (4.8-5.6)
[2019-01-07] VITALS: BP 106/41
[2019-01-07 04:00] VITALS: BP 96/41
[2019-01-07 05:20] LABS: ABSOLUTE EOSINOPHILS 0.1 thou/uL (0.0-0.7); ABSOLUTE LYMPHOCYTES 1.5 thou/uL (0.8-5.3); ABSOLUTE MONOCYTES 0.4 thou/uL (0.0-1.2); ABSOLUTE NEUTROPHILS 3.7 thou/uL (1.6-8.1); BASOPHILS 0.9 %; EOSINOPHILS 1.4 %; HEMATOCRIT 37.1 % (37.0-47.0); HEMOGLOBIN 12.5 gm/dL (12.0-15.0); LYMPHOCYTES 25.7 %; MCHC 33.6 g/dL (28.0-37.0); MCV 86.3 fL (80.0-100.0); MONOCYTES 6.4 %; MPV 9.4 fl. (7.2-11.1); NUCLEATED RBCS 0 /100WBC; PLATELET COUNT* 146 thou/uL (150-400); POLYS 65.6 %; RDW-CV 17.1 % (10.5-14.5); WBC 5.7 thou/uL (4.0-11.0)
[2019-01-07 05:26] LABS: CALCIUM 8.7 mg/dL (8.5-10.1); CREATININE 1.3 mg/dL (0.6-1.3)
[2019-01-07 05:40] LABS: CHOLESTEROL 133 mg/dL (<200); HDL CHOLESTEROL 47 mg/dL (>40); LDL CHOLESTEROL 74 mg/dL (<100); TC:HDL 2.8 Ratio (Not establshd); TRIGLYCERIDE 61 mg/dL (<150); VLDL 12 mg/dL (<40)
[2019-01-07 05:42] LABS: SERUM ASSESSMENT CLEAR
--- NOTE | 2019-01-07 05:45 | NUR ---
ASSUMED PT CARE AT 1930. NURSING ASSESSMENT COMPLETED AT START OF SHIFT. PT VOICED NO CONCERNS. MINE EQUIPMENT DESIGN ENGINEER IN PLACE, TRACING AFIB. HOURLY ROUNDING COMPLETED. CALL LIGHT WITHIN REACH.
[2019-01-07 08:00] VITALS: BP 114/50
--- NOTE | 2019-01-07 10:22 | NUR ---
RECEIVED REPORT AND ASSUMED CARE OF PT AT 0735.PT IS A/OX4.ON RA.TRACING AFIB ON THE MONITOR WITH RATE CONTROLLED.ASSESSMENT COMPLETED.NO COMPLAINTS OF WEEKNESS AND PAIN.CLEAR DIMINISHED LUNGS.NIH 1.BM YESTERDAY.VSS.UP STAND BY.CALL LIGHT AND FALL PRECAUTIONS IN PLACE.WILL CONTINUE TO MONITOR.
--- NOTE | 2019-01-07 10:38 | NUR ---
MET WITH PT TO DISCUSS HOME SITUATION/DC PLANNING. PT LIVES ALONE, SHE WATCHES HER 2 GRANDDTRS AFTER SCHOOL AGES 7 AND 13. HER SON LIVES CLOSE AND IS SUPPORTIVE. PT IS INDEPENDENT WITH ADLS. HAS MEDICAL EQUIPMENT BUT NOT CURRENTLY USING IT: WALKER, CANE, O2 AND NEB. SHE HAS HAD HH IN THE PAST BUT DOESN'T ANTICIPATE ANY DC NEEDS. GAVE INFO AND ED FOR DPOA
[2019-01-07 11:18] VITALS: BP 117/73
[2019-01-07 15:11] LABS: PROTIME 57.2 Seconds (9.20-11.50)
[2019-01-07 15:15] LABS: INR 5.7
[2019-01-07 15:23] VITALS: BP 117/58
--- NOTE | 2019-01-07 17:36 | NUR ---
VSS.TRACING AFIB ON THE MONITOR.ON RA.UP STAND BY.IV PATENT AND SALINE LOCKED.NIH COMPLETED WITH NO CHANGES.NO COMPLAINTS OF PAIN AND SOA.MEDS GIVEN PER ORDER.HRLY ROUNDING COMPLETED.CALL LIGHT AND FALL [RECAUTIONS IN PLACE.WILL CONTINUE TO MONITOR.
--- NOTE | 2019-01-07 18:01 | NUR ---
I have reviewed the documentation by ALICIA DORSEY from 729 to 1800 and I concur with it.
[2019-01-07 20:00] VITALS: BP 118/54
[2019-01-08] VITALS: BP 139/68
[2019-01-08 04:00] VITALS: BP 127/54
[2019-01-08 05:18] LABS: PROTIME 40.5 Seconds (9.20-11.50)
--- NOTE | 2019-01-08 06:54 | NUR ---
ASSUMED PT CARE AT 1930. NURSING ASSESSMENT COMPLETED AT START OF SHIFT. PT VOICED NO CONCERNS, DENIES PAIN. PT NIH SCORE 1 FOR DECREASED SENSATION ON LEFT SIDE OF ARM, AND FACE. SALES ASSISTANT INSTITUTIONAL SALES IN PLACE, TRACING AFIB. CALL LIGHT WITHIN REACH. NEGATIVE SEPSIS SCREENING.
[2019-01-08 08:00] VITALS: BP 128/57
--- NOTE | 2019-01-08 08:00 | NUR ---
ASSUMED CARE OF PT ASSESSED AND DOCUMENTED. PT IS ON CARDIAC MONITER TRACING AFIB HR 68. PT IS A&O WITH NO C/O PAIN. VSS WNL. PT IS AFEBRILE. SHE IS ON FALL PRECAUTIONS PER FACILITY PROTOCOL. BED IS IN LOW POSITION CALL LIGHT IS IN REACH. WM.
[2019-01-08 11:39] VITALS: BP 115/53
[2019-01-08 11:40] VITALS: BP 128/57
--- NOTE | 2019-01-08 16:10 | NUR ---
PT LEFT THE FACILITY WITH STAFF.
== END 2019-01-08 16:10 | disposition home or self-care (01) | DRG 74 ==
LOC: M.ERS 11:00 → M.TBA-ER 12:53 → M.2W 12:53
PROVIDERS: Family Medicine; ADMIT Internal Medicine
DX: G56.02 Carpal tunnel syndrome, left upper limb (principal); N17.9 Acute kidney failure, unspecified; I50.32 Chronic diastolic (congestive) heart failure; I13.0 Hypertensive heart and chronic kidney disease with heart failure and stage 1 through stage 4 chronic kidney disease, or unspecified chronic kidney disease; D68.69 Other thrombophilia; M66.9 Spontaneous rupture of unspecified tendon; I48.91 Unspecified atrial fibrillation; M10.9 Gout, unspecified; N18.3 Chronic kidney disease, stage 3 (moderate); I27.20 Pulmonary hypertension, unspecified; J44.9 Chronic obstructive pulmonary disease, unspecified; E11.22 Type 2 diabetes mellitus with diabetic chronic kidney disease; E78.5 Hyperlipidemia, unspecified; E11.51 Type 2 diabetes mellitus with diabetic peripheral angiopathy without gangrene; Z68.39 Body mass index [BMI] 39.0-39.9, adult; Z90.01 Acquired absence of eye; Z92.3 Personal history of irradiation; Z95.2 Presence of prosthetic heart valve; Z85.89 Personal history of malignant neoplasm of other organs and systems; Z87.891 Personal history of nicotine dependence; Z90.49 Acquired absence of other specified parts of digestive tract; Z86.73 Personal history of transient ischemic attack (TIA), and cerebral infarction without residual deficits; Z79.01 Long term (current) use of anticoagulants; Z79.82 Long term (current) use of aspirin; Z79.899 Other long term (current) drug therapy; Z88.5 Allergy status to narcotic agent; Z88.0 Allergy status to penicillin; Z88.8 Allergy status to other drugs, medicaments and biological substances; Z91.040 Latex allergy status

== ENCOUNTER → 2019-02-08 | Outpatient (CLI) | payer MEDICARE, MEDICAID ==
[2019-02-08 08:45] LABS: ABSOLUTE BASOPHILS 0.1 thou/uL (0.0-0.2); ABSOLUTE EOSINOPHILS 0.1 thou/uL (0.0-0.7); ABSOLUTE LYMPHOCYTES 1.3 thou/uL (0.8-5.3); ABSOLUTE MONOCYTES 0.4 thou/uL (0.0-1.2); ABSOLUTE NEUTROPHILS 6.2 thou/uL (1.6-8.1); BASOPHILS 1.4 %; EOSINOPHILS 1.4 %; HEMATOCRIT 40.8 % (37.0-47.0); HEMOGLOBIN 13.8 gm/dL (12.0-15.0); LYMPHOCYTES 15.8 %; MCH 29.7 pg (26.0-34.0); MCHC 33.9 g/dL (28.0-37.0); MCV 87.5 fL (80.0-100.0); MONOCYTES 5.1 %; MPV 8.6 fl. (7.2-11.1); NUCLEATED RBCS 0 /100WBC; PLATELET COUNT* 220 thou/uL (150-400); POLYS 76.3 %; RBC 4.66 mil/uL (4.20-5.00); RDW-CV 18.4 % (10.5-14.5); WBC 8.1 thou/uL (4.0-11.0)
[2019-02-08 08:56] LABS: ALBUMIN 3.3 g/dL (3.4-5.0); CALCIUM 9.1 mg/dL (8.5-10.1); CREATININE 1.4 mg/dL (0.6-1.3); POTASSIUM 4.1 mmol/L (3.5-5.1); TOTAL BILIRUBIN 0.8 mg/dL (<0.1-1.0)
== END ==
LOC: M.RAD 08:00
PROVIDERS: Radiology Radiation Oncology
DX: Z12.31 Encounter for screening mammogram for malignant neoplasm of breast (principal); E03.9 Hypothyroidism, unspecified; Z85.810 Personal history of malignant neoplasm of tongue

== ENCOUNTER → 2019-03-04 | Outpatient (CLI) | payer MEDICARE, MEDICAID ==
--- NOTE | ~2019-03-04 | ONC ---
[place] [address] RADIATION ONCOLOGY NOTE Name: ISABEL NORMAN Room: [facility].#: [id number] Admission: 03/04/19 Attend Phys: Ford Francisco MD Discharge: Date of : 42 Report #: [id number] THIS REPORT FOR: //name// CC: Scarlet Francisco DATE OF SERVICE: 03/04/2019 RADIATION ONCOLOGY FOLLOWUP NOTE REFERRING PHYSICIANS: Scarlet Louis DO as well as Dexter Freed MD, [facility], Ivan Gordon MD, Dr. Black from Orthopedic Surgery and Dr. Dickson Angel. [facility] phone is [phone]. 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 Radiation treatments were completed on 07/30/2010. INTERVAL NOTE: She indicated that she was hospitalized because of some arm weakness, which was then identified as carpal tunnel syndrome. She is chronically in atrial fibrillation and is on anticoagulants for that. She has an artificial heart valve. The patient is edentulous. She eats soft foods. She said she is receiving Lasix. She had her levothyroxine increased from 88 mcg to 100 mcg after she was discharged from the hospital. MEDICATIONS: Include 100 mcg of levothyroxine, Xalatan eye drops, Zetia she takes 5 mg, Percocet as needed, omeprazole, Venita-Michelle tablets, Lasix, Ambien as needed, allopurinol, Lipitor, diazepam as needed, diphenhydramine as needed, metoprolol and Coumadin. SOCIAL HISTORY: The patient is and retired. She is a former smoker. She quit smoking around 2005. She smoked about a pack a day for about 50 years. REVIEW OF SYSTEMS: RESPIRATORY: The patient's breathing was stable. She did not have shortness of breath. GASTROINTESTINAL: The patient felt like she was eating well. She said that some of her weight loss was due to the use of Lasix. PHYSICAL EXAMINATION: VITAL SIGNS: The patient weighed 235.2 pounds on 03/04/2019 and 250.6 pounds on 03/03/2019. On 03/04/2019, blood pressure 120/86, pulse 88, respirations 20, oxygen saturation was 94% on room air. LYMPH NODES: The patient had no cervical, supraclavicular lymphadenopathy. HEART: Has no atrial fibrillation with an [place] [address] RADIATION ONCOLOGY NOTE Name: ISABEL NORMAN Room: [facility]#: [id number] Admission: 03/04/19 Attend Phys: Ford Francisco MD Discharge: Date of : 42 Report #: [id number] HEAD, EYES, EARS, NOSE AND THROAT: Mouth had no suspicious visible lesions in the tonsillar area. There were no palpable lesions in the mouth or tonsillar area. LUNGS: Clear to auscultation. LABORATORY DATA: From 02/08/2019, sodium 140, potassium 4.1, BUN 20, creatinine 1.4. White blood cell count 8.1, hemoglobin 13.8, platelets are 120,000. RADIOLOGIC DATA: The patient had bilateral mammogram on 02/08/2019 which showed benign findings. Annual mammogram was recommended. She also had a low-dose screening chest CT on 01/03/2019, which showed stable tiny pulmonary nodules and continued annual low-dose CT lung screening was recommended. She had marked coronary artery calcifications and she also had enlargement of the main pulmonary artery ____ pulmonary hypertension. ASSESSMENT AND PLAN: 1. History of head and neck cancer. There is no evidence of head and neck cancer at this time. The patient was given requisition for a basic metabolic panel in about 1 year and she was asked to follow up with me afterwards. 2. Abdominal aortic aneurysm. The patient follows up with her vascular surgeon, Dr. Gordon. 3. Lung cancer screening, a low-dose chest CT was ordered in about a year that was without contrast. She was asked to follow up with me afterwards. 4. Hypothyroidism. The patient's TSH was lower than normal, so her levothyroxine was decreased from 100 mcg per day to 88 mcg per day. 5. Coronary artery calcifications and larger on the main pulmonary artery. The patient will be referred to her guest service host to manage this issue and normal screening. 6. The patient has a requisition for bilateral mammogram in 02/2020. Asked to follow up with me afterwards. 7. Nutrition. She says she is eating well and she says that is because of the diuretics that she is having such weight loss. She is edentulous. Thank you for allowing me to participate in the care of this patient. By: [id number] Francisco MD /nt
== END ==
LOC: M.RTH 03-02 09:30
DX: Z08 Encounter for follow-up examination after completed treatment for malignant neoplasm (principal); R63.4 Abnormal weight loss; E03.9 Hypothyroidism, unspecified; I25.10 Atherosclerotic heart disease of native coronary artery without angina pectoris; I27.20 Pulmonary hypertension, unspecified; Z85.89 Personal history of malignant neoplasm of other organs and systems

== ENCOUNTER → 2020-02-09 | Outpatient (CLI) | payer MEDICARE, MEDICAID ==
[2020-02-09 12:07] LABS: CREATININE 1.5 mg/dL (0.6-1.3); POTASSIUM 4.3 mmol/L (3.5-5.1)
== END ==
LOC: M.RAD 10:56
PROVIDERS: Radiology Radiation Oncology
DX: Z12.31 Encounter for screening mammogram for malignant neoplasm of breast (principal); E03.9 Hypothyroidism, unspecified

== ENCOUNTER → 2020-03-02 | Outpatient (CLI) | payer MEDICARE, MEDICAID ==
--- NOTE | 2020-03-03 22:49 | ONC ---
[address] [address] RADIATION ONCOLOGY NOTE Name: ISABEL NORMAN Room: [facility]#: [id number] Admission: 03/02/20 Attend Phys: Ford Francisco MD Discharge: Date of : 42 Report #: [id number] THIS REPORT FOR: //name// CC: Scarlet Freed MD FACC Ivan Monique Nurse Practitioner Marine Mcqueen DATE OF SERVICE: 03/02/2020 RADIATION ONCOLOGY FOLLOWUP NOTE REFERRING PHYSICIAN: 1. Scarlet Louis DO 2. Dexter Freed MD [facility] 3. Ivan Gordon MD 4. Dr. Black from Orthopedic Surgery 5. Dr. Dickson Monique 6. [facility] nurse practitioner, Marine Mcqueen. [facility] Phone is [phone] PRIMARY SITE AND HISTOPATHOLOGY: The patient received definitive radiation therapy for a stage T2N0M0 right tonsillar cancer. Radiation treatments were completed on 07/30/2010. INTERVAL NOTE: The patient has xerostomia. She avoids dry foods. She likes to eat moist foods. She is edentulous. She usually will eat soft foods. MEDICATIONS: Metoprolol, Coumadin, which she takes because she has an artificial heart valve and has atrial fibrillation. Benadryl as needed. Lipitor, allopurinol, Ambien as needed, Lasix, omeprazole, oxycodone as needed and she also takes 88 mcg of levothyroxine per day. SOCIAL HISTORY: The patient is and retired. She is a former smoker. She quit smoking around 2005 and she smoked about a pack a day for about 50 years REVIEW OF SYSTEMS: RESPIRATORY: The patient's breathing was stable. She denied shortness of breath. GASTROINTESTINAL: [place] [address] RADIATION ONCOLOGY NOTE Name: ISABEL NORMAN Room: [facility]#: [id number] Admission: 03/02/20 Attend Phys: Ford Francisco MD Discharge: Date of : 42 Report #: [id number] PHYSICAL EXAMINATION: VITAL SIGNS: She weighed 250.2 pounds on 03/02/2020, 235.2 pounds on 03/04/2019, 250.6 pounds on 03/03/2018. On 03/02/2020, her blood pressure is 123/88, pulse 78, oxygen saturation 96% on room air, respirations 20, temperature 97.5 degrees Fahrenheit. LYMPH NODES: She had no cervical or supraclavicular lymphadenopathy. HEART: She had an irregular rate and rhythm because of atrial fibrillation and a click from her artificial heart valve. HEAD, EYES, EARS, NOSE AND THROAT: Mouth had no suspicious visible lesions. There were no suspicious visible lesions in the tonsillar area. There were no suspicious palpable lesions in the tonsillar area. LABORATORY DATA: From 02/09/2020, TSH was 2.157, which was within normal limits with her taking 88 mcg of levothyroxine per day. Sodium was 138, potassium was 4.3, BUN 27, creatinine was 1.5, and creatinine was 1.4 on 02/08/2019. RADIOLOGIC DATA: She had a bilateral mammogram on 02/09/2020 which revealed benign findings. ASSESSMENT AND PLAN: 1. History of head and neck cancer- There is no evidence of head and neck cancer at this time. A basic metabolic panel was ordered in about 1 year and she was asked to schedule a follow up appointment to see me afterwards. 2. Abdominal aortic aneurysm- The patient was following up with her vascular surgeon, Dr. Gordon with regards to this issue. 3. Hypothyroidism- TSH was within normal limits with her taking 88 mcg per day of levothyroxine so she was given a refill for levothyroxine at 88 mcg per day. A TSH was ordered in 1 year and she was asked to schedule a follow up appointment to see me afterwards. 4. Screening- The patient was given a requisition for a bilateral mammogram in 1 year and she was asked to schedule a followup appointment to see me afterwards. Thank you for allowing me to participate in the care of this patient. <ELECTRONICALLY SIGNED> By: Ford Francisco MD 03/03/20 [id number] Francisco MD /nt
== END ==
LOC: M.RTH 04:00
PROVIDERS: ATTEND Radiology Radiation Oncology
DX: I71.4 Abdominal aortic aneurysm, without rupture (principal); E03.9 Hypothyroidism, unspecified; Z79.899 Other long term (current) drug therapy; Z85.89 Personal history of malignant neoplasm of other organs and systems

== ENCOUNTER → 2020-08-21 | Outpatient (CLI) | payer MEDICARE, MEDICAID ==
--- NOTE | 2020-08-21 10:30 | 2DMMODE ---
[place] [address] 2 D/M-MODE ECHOCARDIOGRAM Name: ISABEL NORMAN Room: [facility]#: [id number] Admission: 08/21/20 Attend Phys: Hayden Canseco Discharge: Date of : 42 Date of Service: 08/21/20 1030 Report #: [id number] THIS REPORT FOR: cc: Scarlet Louis Ahmad W. DO Holkins,Dexter Zamora MD [facility] ~ APPROVED REPORT Study performed: 08/21/2020 08:57:00 EXAM: Comprehensive 2D, Doppler, and color-flow Echocardiogram Patient Location: Out-Patient BSA: 2.22 HR: 72 bpm BP: 123/70 mmHg Other Information Study Quality: Fair Indications Atrial Fibrillation 2D Dimensions IVSd: 13.13 (7-11mm) LVOT Diam: 21.71 (18-24mm) LVDd: 44.27 mm PWd: 8.80 (7-11mm) Ascending Ao: 27.90 (22-36mm) LVDs: 32.88 (25-40mm) Aortic Root: 24.41 mm Volumes Left Atrial Volume (Systole) LA ESV Index: 20.70 mL/m2 Aortic Valve AoV Peak Gerry.: 1.53 m/s AO Peak Gr.: 9.34 mmHg LVOT Max P.80 mmHg AO Mean Gr.: 5.01 mmHg LVOT Mean P.60 mmHg LVOT Max V: 1.40 m/s AO V2 VTI: 33.96 cm LVOT Mean V: 0.87 m/s SAI (VTI): 3.43 cm2 LVOT V1 VTI: 31.48 cm Mitral Valve E/A Ratio: 2.69 [place] [address] 2 D/M-MODE ECHOCARDIOGRAM Name: ISABEL NORMAN [id number] Admission: 08/21/20 Attend Phys: Hayden Canseco Discharge: Date of : 42 Date of Service: 08/21/20 1030 Report #: [id number] MV Decel. Time: 149.18 ms MV E Max Gerry.: 0.86 m/s MV PHT: 43.26 ms MVA (PHT): 5.09 cm2 TDI E/Lateral E': 9.56 E/Medial E': 14.33 Medial E' Gerry.: 0.06 m/s Lateral E' Gerry.: 0.09 m/s Pulmonary Valve PV Peak Gerry.: 0.74 m/s PV Peak Gr.: 2.20 mmHg Tricuspid Valve RAP Estimate: 5.00 mmHg TR Peak Gr.: 40.08 mmHg RVSP: 45.08 mmHg PA Pressure: 45.08 mmHg Left Ventricle The left ventricle is normal size. There is normal LV segmental wall motion. There is normal left ventricular wall thickness. The left ventricular systolic function is normal. The left ventricular ejection fraction is within the normal range. LVEF is 55-60%. This study is not technically sufficient to allow evaluation of the LV diastolic function due to atrial fibrillation. Right Ventricle The right ventricle is normal size. The right ventricular systolic function is normal. Atria Left atrium is moderately dilated. Right atrium is mildly dilated. Aortic Valve Mechanical aortic valve is present. Mild aortic regurgitation. There is no aortic valvular stenosis. Mitral Valve Moderate mitral annular calcification. Mild mitral regurgitation. No evidence of mitral valve stenosis. Tricuspid Valve The tricuspid valve is normal in structure. Mild to moderate [place] [address] 2 D/M-MODE ECHOCARDIOGRAM Name: ISABEL NORMAN Room: [facility]#: [id number] Admission: 08/21/20 Attend Phys: Hayden Canseco Discharge: Date of : 42 Date of Service: 08/21/20 1030 Report #: [id number] Pulmonic Valve The pulmonary valve is normal in structure. Mild to moderate pulmonic regurgitation. Great Vessels The aortic root is normal in size. IVC is normal in size and collapses >50% with inspiration. Pericardium There is no pericardial effusion. <Conclusion> The left ventricle is normal size. There is normal left ventricular wall thickness. The left ventricular systolic function is normal. The left ventricular ejection fraction is within the normal range. LVEF is 55-60%. This study is not technically sufficient to allow evaluation of the LV diastolic function due to atrial fibrillation. The right ventricle is normal size. Left atrium is moderately dilated. Right atrium is mildly dilated. Mechanical aortic valve is present. Mild aortic regurgitation. There is no aortic valvular stenosis. Moderate mitral annular calcification. Mild mitral regurgitation. No evidence of mitral valve stenosis. The tricuspid valve is normal in structure. Mild to moderate tricuspid regurgitation. IVC is normal in size and collapses >50% with inspiration. There is normal LV segmental wall motion. <ELECTRONICALLY SIGNED> By: Dexter Freed MD, FACC 08/21/20 1030 1030 1030 Dexter Freed MD, FACC /INF
== END ==
LOC: M.CRD 08:52
PROVIDERS: ATTEND Internal Medicine
DX: I08.8 Other rheumatic multiple valve diseases (principal); I48.21 Permanent atrial fibrillation; I42.8 Other cardiomyopathies; Z95.2 Presence of prosthetic heart valve

== ENCOUNTER → 2021-02-12 | Outpatient (CLI) | payer MEDICARE, MEDICAID ==
[2021-02-12 11:19] LABS: CALCIUM 9.1 mg/dL (8.5-10.1); CREATININE 1.2 mg/dL (0.6-1.3); POTASSIUM 4.5 mmol/L (3.5-5.1)
== END ==
LOC: M.LAB 12-17 09:53
PROVIDERS: ATTEND Radiology Radiation Oncology
DX: Z12.31 Encounter for screening mammogram for malignant neoplasm of breast (principal); E03.9 Hypothyroidism, unspecified; N64.89 Other specified disorders of breast

== ENCOUNTER → 2021-04-08 | Outpatient (CLI) | payer MEDICARE, MEDICAID | LOC: M.WC 08:00 | PROVIDERS: ATTEND Surgery | DX: I87.332 Chronic venous hypertension (idiopathic) with ulcer and inflammation of left lower extremity (principal); I87.311 Chronic venous hypertension (idiopathic) with ulcer of right lower extremity; L97.221 Non-pressure chronic ulcer of left calf limited to breakdown of skin; L97.811 Non-pressure chronic ulcer of other part of right lower leg limited to breakdown of skin; I48.91 Unspecified atrial fibrillation; E66.01 Morbid (severe) obesity due to excess calories; E03.9 Hypothyroidism, unspecified; E78.5 Hyperlipidemia, unspecified; G47.30 Sleep apnea, unspecified; H40.9 Unspecified glaucoma; I73.9 Peripheral vascular disease, unspecified; J44.9 Chronic obstructive pulmonary disease, unspecified; K21.9 Gastro-esophageal reflux disease without esophagitis; M10.9 Gout, unspecified; M19.90 Unspecified osteoarthritis, unspecified site; Z85.810 Personal history of malignant neoplasm of tongue; Z95.4 Presence of other heart-valve replacement; Z87.891 Personal history of nicotine dependence; Z79.01 Long term (current) use of anticoagulants; Z86.73 Personal history of transient ischemic attack (TIA), and cerebral infarction without residual deficits; Z96.652 Presence of left artificial knee joint; Z90.49 Acquired absence of other specified parts of digestive tract; Z68.39 Body mass index [BMI] 39.0-39.9, adult ==

== ENCOUNTER → 2021-04-15 | Outpatient (CLI) | payer MEDICARE, MEDICAID | LOC: M.WC 07:42 | PROVIDERS: ATTEND Surgery | DX: I87.332 Chronic venous hypertension (idiopathic) with ulcer and inflammation of left lower extremity (principal); L97.222 Non-pressure chronic ulcer of left calf with fat layer exposed; I87.311 Chronic venous hypertension (idiopathic) with ulcer of right lower extremity; L97.812 Non-pressure chronic ulcer of other part of right lower leg with fat layer exposed; E66.01 Morbid (severe) obesity due to excess calories; E03.9 Hypothyroidism, unspecified; E78.5 Hyperlipidemia, unspecified; G47.30 Sleep apnea, unspecified; H40.9 Unspecified glaucoma; I73.9 Peripheral vascular disease, unspecified; I48.91 Unspecified atrial fibrillation; J44.9 Chronic obstructive pulmonary disease, unspecified; K21.9 Gastro-esophageal reflux disease without esophagitis; M10.9 Gout, unspecified; M19.90 Unspecified osteoarthritis, unspecified site; Z85.810 Personal history of malignant neoplasm of tongue; Z95.4 Presence of other heart-valve replacement; Z87.891 Personal history of nicotine dependence; Z79.01 Long term (current) use of anticoagulants; Z86.73 Personal history of transient ischemic attack (TIA), and cerebral infarction without residual deficits; Z96.652 Presence of left artificial knee joint; Z90.49 Acquired absence of other specified parts of digestive tract; Z68.39 Body mass index [BMI] 39.0-39.9, adult ==

== ENCOUNTER → 2021-04-22 | Outpatient (CLI) | payer MEDICARE, MEDICAID | LOC: M.WC 07:50 | PROVIDERS: ATTEND Surgery | DX: I87.332 Chronic venous hypertension (idiopathic) with ulcer and inflammation of left lower extremity (principal); L97.222 Non-pressure chronic ulcer of left calf with fat layer exposed; I87.311 Chronic venous hypertension (idiopathic) with ulcer of right lower extremity; L97.811 Non-pressure chronic ulcer of other part of right lower leg limited to breakdown of skin; E66.01 Morbid (severe) obesity due to excess calories; E03.9 Hypothyroidism, unspecified; E78.5 Hyperlipidemia, unspecified; G47.30 Sleep apnea, unspecified; H40.9 Unspecified glaucoma; I73.9 Peripheral vascular disease, unspecified; I48.91 Unspecified atrial fibrillation; J44.9 Chronic obstructive pulmonary disease, unspecified; K21.9 Gastro-esophageal reflux disease without esophagitis; M10.9 Gout, unspecified; M19.90 Unspecified osteoarthritis, unspecified site; Z85.810 Personal history of malignant neoplasm of tongue; Z95.4 Presence of other heart-valve replacement; Z87.891 Personal history of nicotine dependence; Z79.01 Long term (current) use of anticoagulants; Z86.73 Personal history of transient ischemic attack (TIA), and cerebral infarction without residual deficits; Z96.652 Presence of left artificial knee joint; Z90.49 Acquired absence of other specified parts of digestive tract; Z68.39 Body mass index [BMI] 39.0-39.9, adult ==

== ENCOUNTER → 2021-08-19 | Outpatient (CLI) | payer MEDICARE, MEDICAID ==
--- NOTE | 2021-08-19 12:36 | 2DMMODE ---
[place] [address] 2 D/M-MODE ECHOCARDIOGRAM Name: ISABEL NORMAN Room: [facility]#: [id number] Admission: 08/19/21 Attend Phys: Hayden Canseco Discharge: Date of : 42 Date of Service: 08/19/21 1235 Report #: [id number] THIS REPORT FOR: cc: Scarlet Louis Ahmad W. DO Holkins,Dexter Zamora MD [facility] ~ APPROVED REPORT Study performed: 08/19/2021 10:49:28 EXAM: Comprehensive 2D, Doppler, and color-flow Echocardiogram Patient Location: Out-Patient BSA: 2.22 HR: 74 bpm BP: 130/72 mmHg Other Information Study Quality: Good Indications Atrial Fibrillation 2D Dimensions IVSd: 11.95 (7-11mm) LVOT Diam: 23.20 (18-24mm) LVDd: 38.03 mm PWd: 10.45 (7-11mm) Ascending Ao: 27.86 (22-36mm) LVDs: 29.82 (25-40mm) Aortic Root: 28.94 mm Volumes Left Atrial Volume (Systole) LA ESV Index: 38.20 mL/m2 Aortic Valve AoV Peak Gerry.: 2.14 m/s AO Peak Gr.: 18.37 mmHg LVOT Max P.28 mmHg AO Mean Gr.: 10.45 mmHg LVOT Mean P.11 mmHg LVOT Max V: 0.75 m/s AO V2 VTI: 53.12 cm LVOT Mean V: 0.48 m/s SAI (VTI): 1.36 cm2 LVOT V1 VTI: 17.11 cm Mitral Valve E/A Ratio: 2.95 [place] [address] 2 D/M-MODE ECHOCARDIOGRAM Name: ISABEL NORMAN [id number] Admission: 08/19/21 Attend Phys: Hayden Canseco Discharge: Date of : 42 Date of Service: 08/19/21 1235 Report #: [id number] MV Decel. Time: 176.12 ms MV E Max Gerry.: 1.16 m/s MV PHT: 51.07 ms MVA (PHT): 4.31 cm2 TDI E/Lateral E': 19.33 E/Medial E': 19.33 Medial E' Gerry.: 0.06 m/s Lateral E' Gerry.: 0.06 m/s Pulmonary Valve PV Peak Gerry.: 0.68 m/s PV Peak Gr.: 1.85 mmHg Tricuspid Valve RAP Estimate: 5.00 mmHg TR Peak Gr.: 37.58 mmHg RVSP: 42.58 mmHg PA Pressure: 42.58 mmHg Left Ventricle The left ventricle is normal size. There is normal LV segmental wall motion. There is normal left ventricular wall thickness. Left ventricular systolic function is normal. The left ventricular ejection fraction is within the normal range. LVEF is 55%. This study is not technically sufficient to allow evaluation of the LV diastolic function due to atrial fibrillation. Right Ventricle The right ventricle is normal size. The right ventricular systolic function is normal. Atria Left atrium is moderately dilated. The right atrium size is normal. Aortic Valve Mechanical aortic valve is present. No aortic regurgitation is present. Mild aortic stenosis. Mitral Valve Moderate mitral annular calcification. Mild mitral regurgitation. No evidence of mitral valve stenosis. Tricuspid Valve The tricuspid valve is normal in structure. Mild to moderate tricuspid regurgitation. The RVSP is __45 [place] [address] 2 D/M-MODE ECHOCARDIOGRAM Name: ISABEL NORMAN Room: [facility]#: [id number] Admission: 08/19/21 Attend Phys: Hayden Canseco Discharge: Date of : 42 Date of Service: 08/19/21 1235 Report #: [id number] Pulmonic Valve The pulmonary valve is normal in structure. Mild pulmonic regurgitation. Great Vessels The aortic root is normal in size. IVC is normal in size and collapses >50% with inspiration. Pericardium There is no pericardial effusion. <Conclusion> The left ventricle is normal size. There is normal left ventricular wall thickness. Left ventricular systolic function is normal. The left ventricular ejection fraction is within the normal range. LVEF is 55%. This study is not technically sufficient to allow evaluation of the LV diastolic function due to atrial fibrillation. The right ventricle is normal size. Left atrium is moderately dilated. The right atrium size is normal. Mechanical aortic valve is present. No aortic regurgitation is present. Mild aortic stenosis. Moderate mitral annular calcification. Mild mitral regurgitation. The tricuspid valve is normal in structure. Mild to moderate tricuspid regurgitation. The RVSP is __45 mmHg. IVC is normal in size and collapses >50% with inspiration. There is no pericardial effusion. There is normal LV segmental wall motion. <ELECTRONICALLY SIGNED> By: Dexter Freed MD, FACC 08/19/21 1235 1235 1235 Dexter Freed MD, FACC /INF
== END ==
LOC: M.CRD 09:13
PROVIDERS: ATTEND Internal Medicine
DX: I08.8 Other rheumatic multiple valve diseases (principal); I48.21 Permanent atrial fibrillation; I11.0 Hypertensive heart disease with heart failure; I50.32 Chronic diastolic (congestive) heart failure; Z95.2 Presence of prosthetic heart valve

== ENCOUNTER 2021-09-02 09:40 | Emergency (ER) | payer MEDICARE, MEDICAID ==
[~2021-09-02] VITALS: Ht 170.2 cm; Wt 111.1 kg
[2021-09-02 14:26] LABS: ABSOLUTE LYMPHOCYTES 0.9 thou/uL (0.8-5.3); ABSOLUTE MONOCYTES 0.4 thou/uL (0.0-1.2); ABSOLUTE NEUTROPHILS 6.6 thou/uL (1.6-8.1); BASOPHILS 0.1 %; EOSINOPHILS 0.5 %; HEMATOCRIT 43.5 % (37.0-47.0); HEMOGLOBIN 14.3 gm/dL (12.0-15.0); LYMPHOCYTES 11.3 %; MCHC 32.9 g/dL (28.0-37.0); MCV 91.2 fL (80.0-100.0); MONOCYTES 5.3 %; MPV 9.4 fl. (7.2-11.1); NUCLEATED RBCS 0 /100WBC; PLATELET COUNT* 181 thou/uL (150-400); POLYS 82.8 %; RBC 4.77 mil/uL (4.20-5.00); RDW-CV 16.3 % (10.5-14.5); WBC 7.9 thou/uL (4.0-11.0)
[2021-09-02 14:35] LABS: CALCIUM 9.3 mg/dL (8.5-10.1); CREATININE 1.1 mg/dL (0.6-1.3); POTASSIUM 4.1 mmol/L (3.5-5.1)
[2021-09-02 14:37] LABS: APTT 34.9 Seconds (25.0-31.3); INR 3.9; PROTIME 38.5 Seconds (9.20-11.50)
[2021-09-02 14:39] LABS: ALBUMIN 3.7 g/dL (3.4-5.0); TOTAL BILIRUBIN 1.7 mg/dL (<0.1-1.0); TOTAL PROTEIN 7.8 g/dL (6.4-8.2); URIC ACID* 3.8 mg/dL (2.6-7.2)
[2021-09-02 15:38] LABS: ESR (SEDRATE) 45 mm/hr (0-30)
[2021-09-02] MEDS ORDERED: PREDNISONE 10 M10 MG PO (15:45)
[2021-09-02] MEDS ORDERED: CEPHALEXIN500 MG PO (15:46)
[2021-09-02 16:30] VITALS: BP 149/88
== END 2021-09-02 16:30 | disposition home or self-care (01) ==
LOC: M.ERS 09:40
PROVIDERS: Nurse Practitioner Family
DX: M25.531 Pain in right wrist (principal); R79.1 Abnormal coagulation profile; Z87.39 Personal history of other diseases of the musculoskeletal system and connective tissue; M79.89 Other specified soft tissue disorders; E11.22 Type 2 diabetes mellitus with diabetic chronic kidney disease; I12.9 Hypertensive chronic kidney disease with stage 1 through stage 4 chronic kidney disease, or unspecified chronic kidney disease; N18.30 Chronic kidney disease, stage 3 unspecified; J44.9 Chronic obstructive pulmonary disease, unspecified; E66.9 Obesity, unspecified; R22.31 Localized swelling, mass and lump, right upper limb; Z68.38 Body mass index [BMI] 38.0-38.9, adult; I48.91 Unspecified atrial fibrillation; Z90.49 Acquired absence of other specified parts of digestive tract; Z79.899 Other long term (current) drug therapy; Z79.01 Long term (current) use of anticoagulants; Z88.5 Allergy status to narcotic agent; Z88.4 Allergy status to anesthetic agent; Z91.040 Latex allergy status; Z88.0 Allergy status to penicillin

== ENCOUNTER → 2021-10-03 | Outpatient (CLI) | payer MEDICARE, MEDICAID ==
[~2021-10-03] MED LIST changes: +CEPHALEXIN500 MG PO; +PREDNISONE 10 M10 MG PO
== END ==
LOC: M.WC 08:42
PROVIDERS: ATTEND Family Medicine
DX: I87.313 Chronic venous hypertension (idiopathic) with ulcer of bilateral lower extremity (principal); I70.238 Atherosclerosis of native arteries of right leg with ulceration of other part of lower leg; I70.248 Atherosclerosis of native arteries of left leg with ulceration of other part of lower leg; L97.211 Non-pressure chronic ulcer of right calf limited to breakdown of skin; L97.821 Non-pressure chronic ulcer of other part of left lower leg limited to breakdown of skin; L97.222 Non-pressure chronic ulcer of left calf with fat layer exposed; E66.01 Morbid (severe) obesity due to excess calories; I48.91 Unspecified atrial fibrillation; E03.9 Hypothyroidism, unspecified; E78.5 Hyperlipidemia, unspecified; H40.9 Unspecified glaucoma; G47.30 Sleep apnea, unspecified; I89.0 Lymphedema, not elsewhere classified; J44.9 Chronic obstructive pulmonary disease, unspecified; M10.9 Gout, unspecified; K21.9 Gastro-esophageal reflux disease without esophagitis; M19.90 Unspecified osteoarthritis, unspecified site; Z99.2 Dependence on renal dialysis; Z86.73 Personal history of transient ischemic attack (TIA), and cerebral infarction without residual deficits; Z87.891 Personal history of nicotine dependence; Z95.4 Presence of other heart-valve replacement; Z90.49 Acquired absence of other specified parts of digestive tract; Z95.820 Peripheral vascular angioplasty status with implants and grafts; Z68.39 Body mass index [BMI] 39.0-39.9, adult

== ENCOUNTER → 2021-10-17 | Outpatient (CLI) | payer MEDICARE, MEDICAID | LOC: M.WC 08:20 | PROVIDERS: ATTEND Family Medicine | DX: E11.622 Type 2 diabetes mellitus with other skin ulcer (principal); I87.313 Chronic venous hypertension (idiopathic) with ulcer of bilateral lower extremity; I70.238 Atherosclerosis of native arteries of right leg with ulceration of other part of lower leg; L97.811 Non-pressure chronic ulcer of other part of right lower leg limited to breakdown of skin; I70.248 Atherosclerosis of native arteries of left leg with ulceration of other part of lower leg; L97.821 Non-pressure chronic ulcer of other part of left lower leg limited to breakdown of skin; I70.232 Atherosclerosis of native arteries of right leg with ulceration of calf; L97.211 Non-pressure chronic ulcer of right calf limited to breakdown of skin; I70.242 Atherosclerosis of native arteries of left leg with ulceration of calf; L97.221 Non-pressure chronic ulcer of left calf limited to breakdown of skin; E11.42 Type 2 diabetes mellitus with diabetic polyneuropathy; E66.01 Morbid (severe) obesity due to excess calories; I48.91 Unspecified atrial fibrillation; E03.9 Hypothyroidism, unspecified; E78.5 Hyperlipidemia, unspecified; H40.9 Unspecified glaucoma; G47.30 Sleep apnea, unspecified; I89.0 Lymphedema, not elsewhere classified; J44.9 Chronic obstructive pulmonary disease, unspecified; K21.9 Gastro-esophageal reflux disease without esophagitis; M10.9 Gout, unspecified; M19.90 Unspecified osteoarthritis, unspecified site; Z99.2 Dependence on renal dialysis; Z86.73 Personal history of transient ischemic attack (TIA), and cerebral infarction without residual deficits; Z87.891 Personal history of nicotine dependence; Z95.4 Presence of other heart-valve replacement; Z90.49 Acquired absence of other specified parts of digestive tract; Z95.820 Peripheral vascular angioplasty status with implants and grafts; Z68.39 Body mass index [BMI] 39.0-39.9, adult ==

== ENCOUNTER → 2021-10-28 | Outpatient (CLI) | payer MEDICARE, MEDICAID | LOC: M.WC 08:19 | PROVIDERS: ATTEND Surgery | DX: E11.622 Type 2 diabetes mellitus with other skin ulcer (principal); I87.313 Chronic venous hypertension (idiopathic) with ulcer of bilateral lower extremity; I70.238 Atherosclerosis of native arteries of right leg with ulceration of other part of lower leg; L97.811 Non-pressure chronic ulcer of other part of right lower leg limited to breakdown of skin; I70.248 Atherosclerosis of native arteries of left leg with ulceration of other part of lower leg; L97.821 Non-pressure chronic ulcer of other part of left lower leg limited to breakdown of skin; I70.232 Atherosclerosis of native arteries of right leg with ulceration of calf; L97.211 Non-pressure chronic ulcer of right calf limited to breakdown of skin; I70.242 Atherosclerosis of native arteries of left leg with ulceration of calf; L97.221 Non-pressure chronic ulcer of left calf limited to breakdown of skin; E11.42 Type 2 diabetes mellitus with diabetic polyneuropathy; E66.01 Morbid (severe) obesity due to excess calories; I48.91 Unspecified atrial fibrillation; E03.9 Hypothyroidism, unspecified; E78.5 Hyperlipidemia, unspecified; H40.9 Unspecified glaucoma; G47.30 Sleep apnea, unspecified; I89.0 Lymphedema, not elsewhere classified; J44.9 Chronic obstructive pulmonary disease, unspecified; K21.9 Gastro-esophageal reflux disease without esophagitis; M10.9 Gout, unspecified; M19.90 Unspecified osteoarthritis, unspecified site; Z99.2 Dependence on renal dialysis; Z86.73 Personal history of transient ischemic attack (TIA), and cerebral infarction without residual deficits; Z87.891 Personal history of nicotine dependence; Z95.4 Presence of other heart-valve replacement; Z90.49 Acquired absence of other specified parts of digestive tract; Z95.820 Peripheral vascular angioplasty status with implants and grafts; Z68.39 Body mass index [BMI] 39.0-39.9, adult ==